=== PATIENT | female | born 1990 | race Hispanic/Latino ===

== ENCOUNTER 2019-01-21 09:15 | Emergency (ER) | payer BC | END 2019-01-21 10:09 | disposition home or self-care (01) | LOC: ERS 09:15 | DX: J02.9 Acute pharyngitis, unspecified (principal); H66.92 Otitis media, unspecified, left ear; E66.9 Obesity, unspecified | CPT/HCPCS: 99282 ==

== ENCOUNTER 2022-04-09 13:37 | Emergency (ER) | payer BC, SELFPAY ==
[2022-04-09] MEDS ORDERED: predniSONE 20 MG TAB ONE (17:03)
== END 2022-04-09 17:05 | disposition home or self-care (01) ==
LOC: ERS 13:37
DX: H00.11 Chalazion right upper eyelid (principal); E66.9 Obesity, unspecified
CPT/HCPCS: 99283; J7512